=== PATIENT | female | born 1940 | race Caucasian/White ===

== ENCOUNTER 2021-11-20 21:31 | Emergency (ER) | payer MEDICARE ==
[2021-11-20] MEDS ORDERED: Metoclopramide HCl 10 MG/2 ML VIAL ONE (22:21)
[2021-11-20] MEDS ORDERED: Ketorolac Tromethamine 30 MG/ML VIAL ONE (22:47)
[2021-11-20] MEDS ORDERED: cloNIDine 0.1 MG TAB ONE (22:48)
== END 2021-11-20 23:35 | disposition home or self-care (01) ==
LOC: CSHERS 21:31
DX: I10 Essential (primary) hypertension (principal); R51.9 Headache, unspecified
CPT/HCPCS: 70450; 93005; 93010; 96374; 96375; J1885; J2765

== ENCOUNTER 2022-09-12 08:40 | Emergency (ER) | payer MEDICARE ==
[2022-09-12 09:30] LABS: #Basophils 0.1 10x3/uL (0.0-0.2); #Eosinphils 0.2 10x3/uL (0.0-0.5); #Monocytes 0.7 10x3/uL (0.0-1.1); #Neutrophils 6.1 10x3/uL (1.5-8.4); %Basophils 0.7 % (0.0-2.0); %Eosinophils 1.9 % (0.0-6.0); %Monocytes 7.8 % (0.0-10.0); %Neutrophils 73.2 % (40.0-75.0); Hemoglobin 15.1 g/dL (12.0-15.5); Mean Corpuscular HGB CONC 33.6 g/dL (32.0-36.0); Mean Corpuscular Hemoglobin 29.2 pg (27.0-33.0); Mean Corpuscular Volume 86.9 fl (81.6-98.3); Mean Platelet Volume 8.5 fl (7.4-10.4); Platelet Count 384 10x3/uL (150-450); RBC Distribution Width 13.6 % (11.5-14.5); Red Blood Cell (RBC) Count 5.18 10x6/uL (3.90-5.03); White Blood Cell (WBC) Count 8.3 10x3/uL (3.5-10.5)
[2022-09-12 09:44] LABS: ALT (SGPT) 24 U/L (8-55); AST (SGOT) 23 U/L (5-34); Albumin 4.2 g/dL (3.4-4.8); Alkaline Phosphatase 59 U/L (40-110); Anion Gap 13 mmol/L (10-20); BUN (Urea Nitrogen) 14 mg/dL (9.8-20.1); Bilirubin, Total 0.5 mg/dL (0.2-1.2); Calc. Creatinine Clearance 0 mL/min (70-130); Calcium 9.7 mg/dL (7.8-10.44); Carbon Dioxide 27 mmol/L (23-31); Chloride 101 mmol/L (98-107); Estimated GFR 74; Globulin 2.8 g/dL (2.4-3.5); Glucose 101 mg/dL (83-110); Potassium 3.7 mmol/L (3.5-5.1); Sodium 137 mmol/L (136-145)
[2022-09-12 10:19] LABS: Bilirubin Neg (Negative); Blood, Urine Negative (Negative); Clarity Clear (Clear); Glucose, Urine (Dipstick) Normal (Negative); Ketone, Urine Negative (Negative); Leukocyte Negative (Negative); Nitrite Negative (Negative); Protein, Urine (Dipstick) Negative (Neg-Trace); Specific Gravity, Urine 1.005 (1.005-1.030); Urobilinogen Normal mg/dL (Less than 2); pH, Urine 6.5 (5.0-9.0)
[2022-09-12 10:24] LABS: SARS-CoV-2 NAA Rapid Test Not Detected (NotDetected)
== END 2022-09-12 10:50 | disposition home or self-care (01) ==
LOC: CSHERS 08:40
DX: R05.9 Cough, unspecified (principal); R55 Syncope and collapse; E03.9 Hypothyroidism, unspecified; I10 Essential (primary) hypertension
CPT/HCPCS: 0240U; 71045; 80053; 81003; 83605; 85025; 87040; 87086; 93005; 36415

== ENCOUNTER 2022-09-13 08:19 | Inpatient (IN) | payer MEDICARE ==
[2022-09-13 09:13] LABS: Bilirubin Neg (Negative); Blood, Urine 150 (Negative); Glucose, Urine (Dipstick) Normal (Negative); Ketone, Urine 5 mg/dL (Negative); Leukocyte 500 (Negative); Nitrite Positive (Negative); Protein, Urine (Dipstick) 500 mg/dl (Neg-Trace); pH, Urine 6.5 (5.0-9.0)
[2022-09-13 09:15] LABS: Clarity Cloudy (Clear)
[2022-09-13 09:16] LABS: Bacteria/HPF 1+ HPF (None Seen); RBC/HPF Greater than 50 HPF (0-3); Squamous Epithelial 0-3 HPF (0-3); WBC/HPF 21-50 HPF (0-3)
[2022-09-13 10:18] LABS: #Basophils 0.1 10x3/uL (0.0-0.2); #Eosinphils 0.1 10x3/uL (0.0-0.5); #Monocytes 1.2 10x3/uL (0.0-1.1); #Neutrophils 12.5 10x3/uL (1.5-8.4); %Basophils 0.5 % (0.0-2.0); %Eosinophils 0.5 % (0.0-6.0); %Lymphocytes 8.9 % (18.0-47.0); %Monocytes 7.7 % (0.0-10.0); Hemoglobin 14.9 g/dL (12.0-15.5); Mean Corpuscular HGB CONC 33.6 g/dL (32.0-36.0); Mean Corpuscular Hemoglobin 29.2 pg (27.0-33.0); Mean Corpuscular Volume 86.9 fl (81.6-98.3); Mean Platelet Volume 8.6 fl (7.4-10.4); Platelet Count 411 10x3/uL (150-450); RBC Distribution Width 13.5 % (11.5-14.5); White Blood Cell (WBC) Count 15.3 10x3/uL (3.5-10.5)
[2022-09-13 10:31] LABS: ALT (SGPT) 24 U/L (8-55); AST (SGOT) 22 U/L (5-34); Albumin 4.2 g/dL (3.4-4.8); Alkaline Phosphatase 56 U/L (40-110); Anion Gap 14 mmol/L (10-20); BUN (Urea Nitrogen) 16 mg/dL (9.8-20.1); Bilirubin, Total 0.5 mg/dL (0.2-1.2); CK (CPK) 67 U/L (29-168); Calc. Creatinine Clearance 0 mL/min (70-130); Calcium 9.8 mg/dL (7.8-10.44); Carbon Dioxide 27 mmol/L (23-31); Chloride 101 mmol/L (98-107); Estimated GFR 72; Globulin 2.8 g/dL (2.4-3.5); Glucose 106 mg/dL (83-110); Potassium 3.9 mmol/L (3.5-5.1); Sodium 138 mmol/L (136-145)
[2022-09-13] MEDS ORDERED: cefTRIAXone\\ROCEPHIN 2 GM VIAL ONE (10:55)
[2022-09-13] MEDS ORDERED: Acetaminophen 325 MG TAB PO PRN (11:43)
[2022-09-13] MEDS ORDERED: Senokot S 8.6-50 MG TAB PO PRN (11:43)
[2022-09-13] MEDS ORDERED: Ondansetron PF 4 MG/2 ML Vial IVP PRN (11:43)
[2022-09-13] MEDS ORDERED: Ondansetron ODT 4 MG TAB PO PRN (11:43)
[2022-09-13] MEDS ORDERED: Ipratropium/Albuterol 3 ML NEB NEB PRN (11:45)
[2022-09-13] MEDS: Benzonatate 100 MG CAP PO PRN ×2 (14:44→20:53)
[2022-09-13] MEDS: Sodium Chloride 0.9% 1,000 ML IV SCH (14:44)
[2022-09-13 14:48] VITALS: BMI 27.6
[2022-09-13] MEDS: Famotidine 20 MG TAB PO SCH ×2 (20:53→20:54)
[2022-09-14] MEDS: Sodium Chloride 0.9% 1,000 ML IV SCH (02:52)
[2022-09-14] MEDS: Levothyroxine Sodium 88 MCG TAB PO SCH (05:18)
[2022-09-14] MEDS: Benzonatate 100 MG CAP PO PRN ×3 (05:56→20:17)
[2022-09-14] MEDS ORDERED: Hydrochlorothiazide 25 MG TAB PO SCH (06:00)
[2022-09-14 06:10] LABS: #Basophils 0.1 10x3/uL (0.0-0.2); #Eosinphils 0.4 10x3/uL (0.0-0.5); #Monocytes 0.6 10x3/uL (0.0-1.1); #Neutrophils 4.4 10x3/uL (1.5-8.4); %Eosinophils 4.8 % (0.0-6.0); %Lymphocytes 26.5 % (18.0-47.0); %Monocytes 7.5 % (0.0-10.0); %Neutrophils 60.1 % (40.0-75.0); Hemoglobin 13.7 g/dL (12.0-15.5); Mean Corpuscular HGB CONC 33.8 g/dL (32.0-36.0); Mean Corpuscular Hemoglobin 29.4 pg (27.0-33.0); Mean Corpuscular Volume 86.9 fl (81.6-98.3); Mean Platelet Volume 8.7 fl (7.4-10.4); Platelet Count 353 10x3/uL (150-450); Red Blood Cell (RBC) Count 4.66 10x6/uL (3.90-5.03); White Blood Cell (WBC) Count 7.4 10x3/uL (3.5-10.5)
[2022-09-14 06:29] LABS: Anion Gap 13 mmol/L (10-20); BUN (Urea Nitrogen) 9 mg/dL (9.8-20.1); Calc. Creatinine Clearance 75 mL/min (70-130); Calcium 8.8 mg/dL (7.8-10.44); Carbon Dioxide 24 mmol/L (23-31); Chloride 109 mmol/L (98-107); Estimated GFR 89; Glucose 97 mg/dL (83-110); Sodium 142 mmol/L (136-145)
[2022-09-14 06:30] LABS: Potassium 3.9 mmol/L (3.5-5.1)
[2022-09-14] MEDS: Famotidine 20 MG TAB PO SCH ×2 (08:28→20:17)
[2022-09-14] MEDS: cefTRIAXone\\ROCEPHIN 1 GM in Sodium Chloride 0.9% 100 ML IVPB SCH (10:26)
[2022-09-14] MEDS ORDERED: Aspirin 81 mg Enteric Coated Tablet PO SCH (12:00)
[2022-09-14] MEDS ORDERED: Acetaminophen 325 MG TAB PO PRN (20:58)
[2022-09-15] MEDS: Levothyroxine Sodium 88 MCG TAB PO SCH (06:15)
[2022-09-15 06:44] LABS: #Basophils 0.1 10x3/uL (0.0-0.2); #Eosinphils 0.6 10x3/uL (0.0-0.5); #Monocytes 0.7 10x3/uL (0.0-1.1); #Neutrophils 4.5 10x3/uL (1.5-8.4); %Lymphocytes 26.7 % (18.0-47.0); %Monocytes 9.2 % (0.0-10.0); %Neutrophils 55.9 % (40.0-75.0); Hemoglobin 14.8 g/dL (12.0-15.5); Mean Corpuscular HGB CONC 33.3 g/dL (32.0-36.0); Mean Corpuscular Hemoglobin 29.4 pg (27.0-33.0); Mean Corpuscular Volume 88.3 fl (81.6-98.3); Mean Platelet Volume 8.7 fl (7.4-10.4); Platelet Count 399 10x3/uL (150-450); RBC Distribution Width 13.8 % (11.5-14.5); Red Blood Cell (RBC) Count 5.04 10x6/uL (3.90-5.03)
[2022-09-15 07:26] LABS: Anion Gap 13 mmol/L (10-20); BUN (Urea Nitrogen) 9 mg/dL (9.8-20.1); Calc. Creatinine Clearance 71 mL/min (70-130); Calcium 9.8 mg/dL (7.8-10.44); Carbon Dioxide 27 mmol/L (23-31); Chloride 106 mmol/L (98-107); Estimated GFR 88; Glucose 100 mg/dL (83-110); Potassium 3.7 mmol/L (3.5-5.1); Sodium 142 mmol/L (136-145)
[2022-09-15] MEDS: Famotidine 20 MG TAB PO SCH (08:39)
[2022-09-15] MEDS: Benzonatate 100 MG CAP PO PRN (08:43)
[2022-09-15] MEDS ORDERED: Hydrochlorothiazide 25 MG TAB PO SCH (09:00)
[2022-09-15] MEDS ORDERED: Aspirin 81 mg Enteric Coated Tablet PO SCH (09:00)
[2022-09-15] MEDS: cefTRIAXone\\ROCEPHIN 1 GM in Sodium Chloride 0.9% 100 ML IVPB SCH (10:31)
[2022-09-15 13:05] VITALS: BP 147/81; TEMP 98.3
== END 2022-09-15 15:30 | disposition home or self-care (01) | DRG 872 ==
LOC: CSHERS 08:19 → CSHTELE 14:29
PROVIDERS: ADMIT Hospitalist; ATTEND Hospitalist
DX: A41.9 Sepsis, unspecified organism (principal); N39.0 Urinary tract infection, site not specified; I10 Essential (primary) hypertension; Z20.822 Contact with and (suspected) exposure to COVID-19; Z96.1 Presence of intraocular lens; R31.9 Hematuria, unspecified; R91.1 Solitary pulmonary nodule; B96.20 Unspecified Escherichia coli [E. coli] as the cause of diseases classified elsewhere; E03.9 Hypothyroidism, unspecified; Z79.899 Other long term (current) drug therapy; Z88.5 Allergy status to narcotic agent; Z88.8 Allergy status to other drugs, medicaments and biological substances; Z91.040 Latex allergy status; Z91.048 Other nonmedicinal substance allergy status; Z79.82 Long term (current) use of aspirin; Z79.890 Hormone replacement therapy; Z98.42 Cataract extraction status, left eye; Z98.41 Cataract extraction status, right eye; Z98.890 Other specified postprocedural states; Z98.51 Tubal ligation status; Z90.49 Acquired absence of other specified parts of digestive tract; R05.9 Cough, unspecified; R55 Syncope and collapse
CPT/HCPCS: 36415; 71045; 74176; 80048; 80053; 81003; 81015; 82550; 83605; 85025; 87040; 87077; 87086; 87186; 93005; 94760; 96365; J0696; J3490; J7050

== ENCOUNTER 2023-07-19 22:12 | Observation (INO) | payer MEDICARE ==
[~2023-07-19 22:12] MED LIST: Iopamidol 300 61% 100 ML VIAL FS ONE
[2023-07-19 23:32] LABS: #Basophils 0.1 10x3/uL (0.0-0.2); #Eosinphils 0.1 10x3/uL (0.0-0.5); #Monocytes 1.2 10x3/uL (0.0-1.1); #Neutrophils 12.5 10x3/uL (1.5-8.4); %Basophils 0.4 % (0.0-2.0); %Eosinophils 0.9 % (0.0-6.0); %Lymphocytes 14.7 % (18.0-47.0); %Monocytes 7.6 % (0.0-10.0); %Neutrophils 75.9 % (40.0-75.0); Hematocrit 46.6 % (34.9-44.5); Hemoglobin 15.4 g/dL (12.0-15.5); Mean Corpuscular Hemoglobin 29.6 pg (27.0-33.0); Mean Corpuscular Volume 89.4 fl (81.6-98.3); Mean Platelet Volume 8.4 fl (7.4-10.4); Platelet Count 422 10x3/uL (150-450); RBC Distribution Width 14.2 % (11.5-14.5); Red Blood Cell (RBC) Count 5.21 10x6/uL (3.90-5.03); White Blood Cell (WBC) Count 16.4 10x3/uL (3.5-10.5)
[2023-07-19 23:45] LABS: INR-International Normal Ratio 1.1; PTT 24.8 sec (22.0-33.0); Prothrombin Time 11.3 sec (9.5-12.1)
[2023-07-20 00:01] LABS: ALT (SGPT) 32 U/L (8-55); AST (SGOT) 21 U/L (5-34); Albumin 4.3 g/dL (3.4-4.8); Alkaline Phosphatase 58 U/L (40-110); Anion Gap 15 mmol/L (10-20); BUN (Urea Nitrogen) 14 mg/dL (9.8-20.1); Bilirubin, Total 0.6 mg/dL (0.2-1.2); Calc. Creatinine Clearance 0 mL/min (70-130); Calcium 9.5 mg/dL (7.8-10.44); Carbon Dioxide 27 mmol/L (23-31); Chloride 98 mmol/L (98-107); Estimated GFR 74; Globulin 2.6 g/dL (2.4-3.5); Glucose 85 mg/dL (83-110); Iron 70 ug/dL (50-170); Iron Binding Capacity, Total 331 mcg/dL (265-497); Potassium 3.2 mmol/L (3.5-5.1); Protein, Total 6.9 g/dL (5.8-8.1); Sodium 137 mmol/L (136-145)
[2023-07-20] MEDS ORDERED: metroNIDAZOLE 500 MG/100 ML BAG ONE (00:13)
[2023-07-20] MEDS ORDERED: Calcium Carbonate 500 MG ChewTAB PO PRN (00:29)
[2023-07-20] MEDS ORDERED: Ondansetron PF 4 MG/2 ML Vial IVP PRN (00:29)
[2023-07-20] MEDS ORDERED: Acetaminophen 325 MG TAB PO PRN (00:29)
[2023-07-20] MEDS ORDERED: Ciprofloxacin Lactate/D5W 400 MG in Premix 1 BAG IVPB SCH (01:30)
[2023-07-20] MEDS: Amlodipine 5 MG TAB PO SCH ×2 (02:35→04:05)
[2023-07-20] MEDS ORDERED: Potassium Chloride 20 MEQ TAB PO SCH (03:00)
[2023-07-20] MEDS ORDERED: Lactated Ringer's 1,000 ML IV SCH (03:00)
[2023-07-20 03:26] VITALS: BMI 28.0
[2023-07-20 03:33] LABS: #Basophils 0.1 10x3/uL (0.0-0.2); #Eosinphils 0.1 10x3/uL (0.0-0.5); #Monocytes 1.1 10x3/uL (0.0-1.1); #Neutrophils 12.7 10x3/uL (1.5-8.4); %Basophils 0.4 % (0.0-2.0); %Eosinophils 0.6 % (0.0-6.0); %Lymphocytes 15.3 % (18.0-47.0); %Monocytes 6.7 % (0.0-10.0); %Neutrophils 76.4 % (40.0-75.0); Hematocrit 43.9 % (34.9-44.5); Hemoglobin 14.7 g/dL (12.0-15.5); Mean Corpuscular HGB CONC 33.5 g/dL (32.0-36.0); Mean Corpuscular Hemoglobin 29.9 pg (27.0-33.0); Mean Corpuscular Volume 89.4 fl (81.6-98.3); Mean Platelet Volume 8.5 fl (7.4-10.4); Platelet Count 371 10x3/uL (150-450); RBC Distribution Width 14.2 % (11.5-14.5); Red Blood Cell (RBC) Count 4.91 10x6/uL (3.90-5.03); White Blood Cell (WBC) Count 16.6 10x3/uL (3.5-10.5)
[2023-07-20] MEDS ORDERED: FLU VACC QS2023(65UP)/MF59C/PF 60 MCG/0.5 ML SYRINGE IM ONE (03:45)
[2023-07-20 03:53] LABS: Anion Gap 14 mmol/L (10-20); BUN (Urea Nitrogen) 10 mg/dL (9.8-20.1); Calc. Creatinine Clearance 69 mL/min (70-130); Calcium 8.9 mg/dL (7.8-10.44); Carbon Dioxide 26 mmol/L (23-31); Chloride 103 mmol/L (98-107); Estimated GFR 87; Glucose 100 mg/dL (83-110); Potassium 3.5 mmol/L (3.5-5.1); Sodium 139 mmol/L (136-145)
[2023-07-20] MEDS: Levothyroxine Sodium 88 MCG TAB PO SCH (07:08)
[2023-07-20] MEDS: metroNIDAZOLE 500 MG in Premix 1 BAG IVPB SCH ×3 (08:00→23:56)
[2023-07-20] MEDS ORDERED: Amlodipine 5 MG TAB PO SCH (09:00)
[2023-07-20] MEDS ORDERED: Lisinopril 10 MG TAB PO SCH (09:00)
[2023-07-20] MEDS: Losartan 25 MG TAB PO SCH ×2 (09:00→09:50)
[2023-07-20] MEDS ORDERED: LevoFLOXacin 500 mg/D5W 500 MG in Premix 1 BAG IVPB SCH (09:00)
[2023-07-20] MEDS: Pantoprazole 40 MG VIAL IVP SCH (09:00)
[2023-07-20] MEDS: Mirabegron ER 25 MG ER.TAB PO SCH (09:21)
[2023-07-20 11:59] LABS: Hematocrit 40.8 % (34.9-44.5); Hemoglobin 13.7 g/dL (12.0-15.5)
[2023-07-20] MEDS: Ciprofloxacin Lactate/D5W 400 MG in Premix 1 BAG IVPB SCH (14:30)
[2023-07-20] MEDS ORDERED: Losartan 25 MG TAB PO SCH (21:00)
[2023-07-21] MEDS: Ciprofloxacin Lactate/D5W 400 MG in Premix 1 BAG IVPB SCH (01:53)
[2023-07-21 04:59] LABS: Hematocrit 41.1 % (34.9-44.5); Hemoglobin 13.3 g/dL (12.0-15.5); Mean Corpuscular HGB CONC 32.4 g/dL (32.0-36.0); Mean Corpuscular Hemoglobin 29.5 pg (27.0-33.0); Mean Corpuscular Volume 91.1 fl (81.6-98.3); Mean Platelet Volume 8.3 fl (7.4-10.4); Platelet Count 316 10x3/uL (150-450); RBC Distribution Width 14.6 % (11.5-14.5); Red Blood Cell (RBC) Count 4.51 10x6/uL (3.90-5.03)
[2023-07-21] MEDS: Levothyroxine Sodium 88 MCG TAB PO SCH (05:06)
[2023-07-21 05:18] LABS: Anion Gap 13 mmol/L (10-20); BUN (Urea Nitrogen) 7 mg/dL (9.8-20.1); Calc. Creatinine Clearance 68 mL/min (70-130); Calcium 8.6 mg/dL (7.8-10.44); Carbon Dioxide 25 mmol/L (23-31); Chloride 108 mmol/L (98-107); Estimated GFR 85; Glucose 103 mg/dL (83-110); Potassium 3.9 mmol/L (3.5-5.1); Sodium 142 mmol/L (136-145)
[2023-07-21] MEDS ORDERED: Hydrochlorothiazide 25 MG TAB PO SCH (09:00)
[2023-07-21] MEDS: metroNIDAZOLE 500 MG in Premix 1 BAG IVPB SCH (10:13)
[2023-07-21] MEDS: Mirabegron ER 25 MG ER.TAB PO SCH (10:14)
[2023-07-21] MEDS: Pantoprazole 40 MG VIAL IVP SCH (10:15)
[2023-07-21 10:56] VITALS: BP 128/72; TEMP 98.2
== END 2023-07-21 12:10 | disposition home or self-care (01) ==
LOC: CSHERS 22:12 → CSHTELE 07-20 00:23
PROVIDERS: ADMIT Student in an Organized Health Care Education/Training Program; ATTEND Internal Medicine
DX: R10.9 Unspecified abdominal pain (principal); K52.9 Noninfective gastroenteritis and colitis, unspecified; I10 Essential (primary) hypertension; E03.9 Hypothyroidism, unspecified; K62.5 Hemorrhage of anus and rectum; E87.6 Hypokalemia; R35.0 Frequency of micturition; Z98.49 Cataract extraction status, unspecified eye; Z98.890 Other specified postprocedural states; Z98.51 Tubal ligation status; Z91.040 Latex allergy status; Z88.8 Allergy status to other drugs, medicaments and biological substances; Z88.5 Allergy status to narcotic agent; Z90.49 Acquired absence of other specified parts of digestive tract; Z86.718 Personal history of other venous thrombosis and embolism; Z79.890 Hormone replacement therapy; Z79.899 Other long term (current) drug therapy; Z79.82 Long term (current) use of aspirin
CPT/HCPCS: 74177; 80048 ×2; 80053; 82728; 83540; 83550; 83735; 84443; 85014; 85018; 85025 ×2; 85027; 85610; 85730; 86850; 86900; 86901; 93005; 96375; 96376 ×2; G0378 ×3; 36415; 82274; C9113; J0744; J7120; Q9967

== ENCOUNTER 2023-08-16 10:38 | Day surgery (SDC) | payer MEDICARE ==
[2023-08-13 09:18] VITALS: BMI 28.0
[2023-08-16] MEDS ORDERED: Midazolam HCl 2 mg/2 ml Vial ONE (12:48)
[2023-08-16] MEDS ORDERED: PROPOFOL 20 ML ONE (13:00)
== END 2023-08-16 13:55 | disposition home or self-care (01) ==
LOC: CSHSDC 10:38
PROVIDERS: ATTEND Internal Medicine Gastroenterology
PROC: 0DJD8ZZ Inspection of Lower Intestinal Tract, Via Natural or Artificial Opening Endoscopic (ICD-10-PCS; principal; 2023-08-16)
DX: Z12.11 Encounter for screening for malignant neoplasm of colon (principal); K57.30 Diverticulosis of large intestine without perforation or abscess without bleeding; K64.9 Unspecified hemorrhoids; K62.5 Hemorrhage of anus and rectum; I10 Essential (primary) hypertension; E03.9 Hypothyroidism, unspecified; E78.5 Hyperlipidemia, unspecified; K21.9 Gastro-esophageal reflux disease without esophagitis; R32 Unspecified urinary incontinence; Z88.5 Allergy status to narcotic agent; Z88.8 Allergy status to other drugs, medicaments and biological substances; Z88.1 Allergy status to other antibiotic agents; Z91.040 Latex allergy status; Z79.890 Hormone replacement therapy; Z79.899 Other long term (current) drug therapy
CPT/HCPCS: J2250; J2704

== ENCOUNTER 2024-09-12 13:48 | Emergency (ER) | payer MEDICARE ==
[2024-09-12] MEDS ORDERED: Ondansetron PF 4 MG/2 ML Vial ONE (14:31)
[2024-09-12 15:43] LABS: ALT (SGPT) 27 U/L (8-55); AST (SGOT) 31 U/L (5-34); Albumin 4.7 g/dL (3.4-4.8); Alkaline Phosphatase 67 U/L (40-110); Anion Gap 18 mmol/L (10-20); BUN (Urea Nitrogen) 14 mg/dL (9.8-20.1); Bilirubin, Total 0.6 mg/dL (0.2-1.2); Calc. Creatinine Clearance 0 mL/min (70-130); Calcium 10.1 mg/dL (7.8-10.44); Carbon Dioxide 23 mmol/L (23-31); Chloride 103 mmol/L (98-107); Estimated GFR 74; Globulin 3.6 g/dL (2.4-3.5); Glucose 109 mg/dL (83-110); Lipase 24 U/L (8-78); Potassium 3.7 mmol/L (3.5-5.1); Protein, Total 8.3 g/dL (5.8-8.1); Sodium 140 mmol/L (136-145)
[2024-09-12 15:45] LABS: #Basophils 0.04 10x3/uL (0.0-0.2); #Eosinophils 0.11 10x3/uL (0.0-0.5); #Monocytes 0.67 10x3/uL (0.0-1.1); #Neutrophils 12.65 10x3/uL (1.5-8.4); %Basophils 0.3 % (0.0-2.0); %Eosinophils 0.8 % (0.0-6.0); %Lymphocytes 5.4 % (18.0-47.0); %Monocytes 4.7 % (0.0-10.0); %Neutrophils 88.3 % (40.0-75.0); Hematocrit 48.5 % (34.9-44.5); Hemoglobin 15.8 g/dL (12.0-15.5); Mean Corpuscular HGB CONC 32.6 g/dL (32.0-36.0); Mean Corpuscular Hemoglobin 29.5 pg (27.0-33.0); Mean Corpuscular Volume 90.5 fL (81.6-98.3); RBC Distribution Width 14.6 % (11.5-14.5); Red Blood Cell (RBC) Count 5.36 10x6/uL (3.90-5.03); White Blood Cell (WBC) Count 14.32 10x3/uL (3.5-10.5)
[2024-09-12 15:58] LABS: Platelet Count 217 10x3/uL (150-450)
== END 2024-09-12 16:46 | disposition home or self-care (01) ==
LOC: CSHERS 13:48
DX: R11.2 Nausea with vomiting, unspecified (principal); R29.700 NIHSS score 0; I10 Essential (primary) hypertension
CPT/HCPCS: 80053; 83690; 85025; 87428; J2405; 96361; 96374